=== PATIENT | male | born 1995 | race African-American/Black ===

== ENCOUNTER 2021-01-07 14:33 | Emergency (ER) | payer OTHER, SELFPAY ==
[2021-01-07 14:36] VITALS: BP 148/79; PULSE 95; RESP 17; TEMP 35.7; O2SAT 100
--- NOTE | 2021-01-07 15:29 | ED.GENADULT ---
HPI - General Adult General Chief complaint: Unspecified Stated complaint: ingrown toenail Time Seen by Provider: 01/07/21 14:50 Source: patient Mode of arrival: ambulatory Limitations: no limitations History of Present Illness HPI narrative: This is a 25 year old male that presents to the ER for ingrown toenails. Present for about a month. Reports he has had trouble with these for some time. Reports bleeding and pain to the area. Denies fever. Related Data Home Medications Medication Instructions Recorded Confirmed No Home Medications 01/07/21 01/07/21 Allergies Allergy/AdvReac Type Severity Reaction Status Date / Time No Known Drug Allergies Allergy Unknown Unknown Verified 01/07/21 14:47 Review of Systems Review of Systems: Narrative: CONSTITUTIONAL: Denies fever SKIN: Reports ingrown toenails All systems reviewed & are unremarkable except as noted in HPI and below PMFSH Past Medical History Medical History (Updated 01/07/21 @ 17:22 by Olga Whitley PA-C) Anxiety Surgical History Surgical History (Updated 09/25/19 @ 09:31 by Constantino Whitney PA-C) History of tonsillectomy and adenoidectomy Social History Social History (Updated 09/25/19 @ 09:31 by Constantino Whitney PA-C) Smoking status: Never smoker Gender identity (if verbalized by the patient): Male Exam Narrative: Exam Narrative: GENERAL: Well-appearing, well-nourished, and in no acute distress. HEAD: Normocephalic, atraumatic. EYES: EOMI. EXTREMITIES: Normal range of motion. Left great toe with ingrown toenail on the medial side of the nail. Right great toe with ingrown toenail on both the medial and lateral side of the nail. Does have moderate edema and redness surrounding the nail SKIN: Warm, dry, no rash. NEURO: No focal deficits. Alert and oriented x3. PSYCH: Normal mood and affect Course Vital Signs Vital signs: Vital Signs Temperature 96.3 F L 01/07/21 14:36 Pulse Rate 95 01/07/21 14:36 Respiratory Rate 17 01/07/21 14:36 Blood Pressure 148/79 H 01/07/21 14:36 Pulse Oximetry 100 01/07/21 14:36 Temperature 96.3 F L 01/07/21 14:36 Pulse Rate 95 01/07/21 14:36 Respiratory Rate 17 01/07/21 14:36 Blood Pressure 148/79 H 01/07/21 14:36 Pulse Oximetry 100 01/07/21 14:36 Procedures Nerve Block Nerve Block 1: Nerve block date: 01/07/21 Nerve block time: 17:19 Local Anesthetic: lidocaine 1% Amount of anesthesia used (mL): 4 Side: right Nerve Blocks: digital Procedure Successful: Yes Patient Tolerated Procedure: well Complications: none Nerve Block 2: Nerve block date: 01/07/21 Nerve block time: 17:19 Local Anesthetic: lidocaine 1% Amount of anesthesia used (mL): 4 Side: left Nerve Blocks: digital Procedure Successful: Yes Patient Tolerated Procedure: well Complications: none Other Procedure Procedure 1: Other Procedure: Ingrown toenail management 1: 1% lidocaine, no epi; 4 ccs Nail wedge removed with hemostats and scissors Ingrown toenail management 2: 1% lidocaine, no epi; 4 ccs Nail wedge removed with hemostats and scissors Medical Decision Making MDM Narrative Medical decision making narrative: Patient presents to the emergency department for bilateral ingrown toenails. I did remove the involved nail wedges bilaterally. Patient was soaked in warm soapy water. Will be started on oral antibiotics. He was instructed on wound care. Was instructed to follow-up with a benefits technician. He was given warnings to return to the ER Vital Signs Vital Signs: Vital Signs Temperature 96.3 F L 01/07/21 14:36 Pulse Rate 95 01/07/21 14:36 Respiratory Rate 17 01/07/21 14:36 Blood Pressure 148/79 H 01/07/21 14:36 Pulse Oximetry 100 01/07/21 14:36 Temperature 96.3 F L 01/07/21 14:36 Pulse Rate 95 01/07/21 14:36 Respiratory Rate 17 01/07/21 14:36 Bl
== END 2021-01-07 17:41 | disposition home or self-care (01) ==
PROVIDERS: Emergency Provider Emergency Medicine
DX: L60.0 Ingrowing nail (principal)
CPT/HCPCS: 11750; 11765; 99283

== ENCOUNTER 2021-01-24 10:42 | Outpatient (CLI) | payer OTHER, SELFPAY ==
--- NOTE | ~2021-01-24 | XR_ITS ---
EXAMINATION: XR ankle LT min 3V, XR foot LT min 3V EXAM DATE: 01/24/2021 11:14 INDICATION: Talar tarsal instability bilaterally. TECHNIQUE: Left foot standing dorsoplantar, lateral and oblique projections obtained and reviewed. L eft ankle standing frontal, lateral and oblique projections obtained and reviewed. Correlation is mad e to contralateral foot same date. FINDINGS: Left metatarsal bones unremarkable. The left ankle mortise appears intact. Mild to mod erate pes planus. There are no acute fractures or dislocations identified. There is no subcutaneous gas. The soft tissue is unremarkable. There are no radiopaque foreign bodies. IMPRESSION: Mild to moderate left pes planus. Reviewed, dictated and finalized at location B. LEASE INFORMATION CLERK IMPRESSION: Mild to moderate left pes planus.
--- NOTE | ~2021-01-24 | XR_ITS ---
EXAMINATION: XR ankle RT min 3V, XR foot RT min 3V EXAM DATE: 01/24/2021 11:14 INDICATION: Talar tarsal instability bilaterally. TECHNIQUE: Right foot standing dorsoplantar, lateral and oblique projections obtained and reviewed. Right ankle standing frontal, lateral and oblique projections obtained and reviewed. Correlation is m jose to contralateral foot and ankle same date. FINDINGS: Right metatarsal bones unremarkable. The right ankle mortise appears intact. Mild pes lisha nus. Mild hallux valgus. There are no bony erosions identified. There are no acute fractures or dislo cations identified. There is no subcutaneous gas. The soft tissue is unremarkable. There are no r adiopaque foreign bodies. IMPRESSION: 1. Mild right pes planus. 2. Mild hallux valgus. Reviewed, dictated and finalized at location B. TROTOLUENE OPERATOR IMPRESSION: 1. Mild right pes planus. 2. Mild hallux valgus.
== END 2021-01-24 10:43 | disposition home or self-care (01) ==
PROVIDERS: Visit Provider Podiatrist Foot & Ankle Surgery
DX: M79.89 Other specified soft tissue disorders (principal); M21.42 Flat foot [pes planus] (acquired), left foot; M20.11 Hallux valgus (acquired), right foot; M21.41 Flat foot [pes planus] (acquired), right foot
CPT/HCPCS: 73610; 73630

== ENCOUNTER 2023-03-18 13:46 | Emergency (ER) | payer OTHER, SELFPAY ==
[2023-03-18 13:55] VITALS: BP 153/98; PULSE 107; RESP 14; TEMP 36.9; O2SAT 100
--- NOTE | 2023-03-18 13:56 | ED.NECK ---
HPI - Neck Pain/Injury General Chief Complaint: Unspecified Stated Complaint: Left Side Face/Neck Pain Time Seen by Provider: 03/18/23 13:56 Source: patient Mode of arrival: ambulatory Limitations: no limitations History of Present Illness HPI Narrative: Abhay is a 27-year-old male patient presenting to the clinic today with complaints of left-sided facial/neck pain x 1 week. He reports he did have a fever earlier this week however his fever has broken. States he still has some left-sided facial swelling/neck that is tender to palpation. Denies any difficulty swallowing, increase and salivary production, tongue swelling, dental pain, or ear pain. History of tonsils and adenoids removed. Related Data Home Medications Medication Instructions Recorded Confirmed No Home Medications 01/07/21 03/18/23 Allergies Allergy/AdvReac Type Severity Reaction Status Date / Time No Known Drug Allergies Allergy Unknown Unknown Verified 03/18/23 14:24 Review of Systems Review of Systems: Pertinent positives per HPI. Patient denies any fever, chills, rash, headache, visual changes, dizziness, cough, runny nose, sore throat, shortness of breath, chest pain, palpitations, nausea, vomiting, diarrhea, constipation, abdominal pain, or any urinary issues. [facility] Past Medical History Medical History Anxiety Surgical History Surgical History History of tonsillectomy and adenoidectomy Social History Social History Smoking status: Never smoker Gender identity (if verbalized by the patient): Male Comments At the time of my signature, I reviewed and agree with the nursing past medical, surgical, social, and family history. There is no relevant family history pertinent to the patient complaint. Exam Narrative: General: Well-developed, well nourished, in no apparent distress Head: Normocephalic, atraumatic Eyes: Pupils equally round and reactive to light bilaterally, EOM intact, sclera and conjunctive clear, no discharge, lids normal Ears: TMs intact and clear, ear canals clear, no drainage, grossly hearing normal. Nose: Nares patent, no discharge, no inflammation, no sinus tenderness. Mouth: Oropharynx without lesions or masses, good dentition, MMM. Neck: Supple, trachea midline, no enlargement of anterior or posterior cervical nodes, swelling over the right parotid and salivary gland, tenderness to palpation over this area, no thyroid masses or goiter palpable. Cardio: Regular rate and rhythm, s1 and s2 normal, no murmur appreciated. Resp: Clear to auscultation bilaterally anteriorly and posteriorly, no rhonchi, rales, wheezing or rubs Course Course Emergency Course: Portions of this record may have been created with voice recognition software. Level of Care: Express Care Visit Vital Signs Vital signs: Vital signs reviewed MDM - Neck Pain/Injury MDM Narrative Medical decision making narrative: At the time of visit patient is resting comfortably on the exam table. No sign of ear infection, dental infection, strep screen was negative. I suspect patient has either sialadenitis verses mumps virus. Supportive measures were discussed with the patient he voiced understanding discharge instructions agrees to treatment plan. Differential Diagnosis Differential diagnosis: Likely other (dental infection, ear infection, sialadenitis, mumps virus) Discharge Plan Discharge Clinical Impression: Sialadenitis Patient Disposition: Home, Self-Care Condition: Stable Instructions: Antibiotic Form, Sialoadenitis (ED), Mumps in Adults (ED) Additional Instructions: Strep screen was negative in the clinic today. Recommend try to use sour candies to help alleviate symptoms May apply warm compresses to the affected area for 15 ricky
== END 2023-03-18 14:32 | disposition home or self-care (01) ==
PROVIDERS: Emergency Provider Nurse Practitioner Family; PCP Family Medicine
DX: K11.20 Sialoadenitis, unspecified (principal)
CPT/HCPCS: 87081; 87880; 99213; G0463

== ENCOUNTER 2023-03-19 21:14 | Emergency (ER) | payer OTHER, SELFPAY ==
[2023-03-19 21:18] VITALS: BP 147/97; PULSE 114; RESP 18; TEMP 36.6; O2SAT 99
--- NOTE | 2023-03-19 23:02 | ED.GENADULT ---
HPI - General Adult General Chief complaint: Skin/Abscess/Foreign Body <Jeromy Seals PA-C - Last Filed: 03/20/23 03:23> Stated complaint: lumps to head and neck <TAMERA Vail Last Filed: 03/20/23 03:23> Time Seen by Provider: 03/19/23 22:42 <TAMERA Vail Last Filed: 03/20/23 03:23> Source: patient <TAMERA Vail Last Filed: 03/20/23 03:23> Mode of arrival: ambulatory <TAMERA Vail Last Filed: 03/20/23 03:23> Limitations: no limitations <TAMERA Vail Last Filed: 03/20/23 03:23> History of Present Illness HPI narrative: This is a 27-year-old male presents the ED with chief complaint of lymph node swelling and fevers x1 week. Patient states he has been feeling somewhat ill over the past week. Reports Tmax of 99 at home. Endorses malaise. Denies sore throat, congestion, rhinorrhea, abdominal pain, nausea, vomiting, chest pain, shortness of breath. <TAMERA Vail Last Filed: 03/20/23 03:23> Related Data Allergies/adverse reactions: Allergies Allergy/AdvReac Type Severity Reaction Status Date / Time No Known Drug Allergies Allergy Unknown Unknown Verified 03/19/23 22:10 <TAMERA Vail Last Filed: 03/20/23 03:23> Review of Systems Review of Systems: CONSTITUTIONAL: See HPI EYES: Denies visual changes, redness, or discharge. ENT: Denies rhinorrhea, congestion, sore throat, or otalgia. CARDIOVASCULAR: Denies chest pain, palpitations, or edema. RESPIRATORY: Denies cough or dyspnea. GASTROINTESTINAL: Denies abdominal pain, nausea, vomiting, or diarrhea. GENITOURINARY: Denies dysuria or hematuria. SKIN: See HPI MUSCULOSKELETAL: Denies back pain, joint pain, or myalgia. NEUROLOGIC: Denies headache, numbness, dizziness, or weakness. PSYCHIATRIC: Denies anxiety or depression. <Jeromy Seals PA-C - Last Filed: 03/20/23 03:23> [facility] Past Medical History Medical History: Medical History Anxiety <TAMERA Vail Last Filed: 03/20/23 03:23> Surgical History Surgical History: Surgical History History of tonsillectomy and adenoidectomy <TAMERA Vail Last Filed: 03/20/23 03:23> Social History Social History: Social History Smoking status: Never smoker Gender identity (if verbalized by the patient): Male <TAMERA Vail Last Filed: 03/20/23 03:23> Exam Narrative: GENERAL: Well-appearing, well-nourished, and in no acute distress. HEAD: Normocephalic, atraumatic. EYES: PERRLA and EOMI. ENT: Nares clear, no rhinorrhea or epistaxis. Mucous membranes moist. Oropharynx without tonsillar hypertrophy exudate or other lesions. NECK: Supple. Anterior and posterior cervical chain lymphadenopathy present bilaterally. nodes are mildly tender. CHEST: No respiratory distress. Clear to auscultation. No wheezes rales or rhonchi HEART: Regular rate and rhythm. No murmur heard. Normal peripheral pulses. ABDOMEN: Soft, nontender, nondistended, normal active bowel sounds. EXTREMITIES: Normal range of motion. No edema. SKIN: Warm, dry, no rash. NEURO: Alert and oriented x3. No focal deficits. PSYCH: Normal mood and affect. <Jeromy Seals PA-C - Last Filed: 03/20/23 03:23> Course REGULATORY AFFAIRS DIRECTOR/PA Physician Supervision This is a was performed by both a physician and an APC. I performed all aspects of the MDM as documented w/ the following additions: 27-year-old male presenting with sore throat and tender cervical lymphadenopathy. Strep throat was positive. Patient is discharged on antibiotics. All questions answered. Patient in agreement w/ disposition. <Marv Evans MD - Last Filed: 03/23/23 08:01> Vital Signs Vital signs: Vital Signs Temperature 97.8 F 03/19/23 21:18 Pulse Rate 1
[2023-03-19 23:33] VITALS: PULSE 97; RESP 18; O2SAT 99
[2023-03-19 23:35] LABS: Basophils Percent Auto 0.5 % (0.2-1.2); Eosinophils Absolute Auto 0.2 K/mm3 (0-0.3); Hematocrit 46.9 % (42.0-52.0); Hemoglobin 15.6 g/dL (14.0-18.0); Immature Granulocyte Absolute 0.02 K/mm3 (0.00-0.031); Immature Granulocyte Percent A 0.3 % (0-0.5); Lymphocytes Absolute Auto 1.82 K/mm3 (0.9-3.2); Lymphocytes Percent Auto 23.2 % (18.3-44.2); Mean Corpuscular HGB Conc 33.3 g/dl (32-36); Mean Corpuscular Volume 87.2 fl (80-100); Mean Platelet Volume 8.3 fl (7.4-10.4); Monocytes Absolute Auto 0.8 K/mm3 (0.1-0.6); Monocytes Percent Auto 10.2 % (2.6-8.5); Neutrophils Percent Auto 63.8 % (45.5-73.1); Platelet Count Result 366 k/mm3 (150-375); Red Blood Count 5.38 M/mm3 (4.6-6.20); Red Cell Distribution Width 12.8 % (11.5-14.5); White Blood Count 7.8 K/mm3 (4.5-10.0)
[2023-03-20 00:02] LABS: Alanine Aminotransferase 33 U/L (6-50); Albumin Level 4.6 g/dL (3.5-5.1); Alkaline Phosphatase 86 U/L (38-126); Anion Gap 6 mmol/L (8-16); Aspartate Amino Transferase 30 U/L (17-59); Bilirubin,Total 0.6 mg/dL (0.2-1.3); Blood Urea Nitrogen 10 mg/dL (9-20); Calcium 8.9 mg/dL (8.4-10.2); Carbon Dioxide 30 mmol/L (22-30); Chloride 103 mmol/L (98-107); Estimated CRCL calculation 169 ml/min; Estimated Glomerular Filt Rate > 60; Glucose 106 mg/dL (65-110); Potassium 5.2 mmol/L (3.4-5.0); Sodium 139 mmol/L (137-145)
[2023-03-20 00:10] LABS: Influenza A QL RT-PCR Negative (Negative); Influenza B QL RT-PCR Negative (Negative); RSV RNA, RT-PCR Negative (Negative); SARS-CoV-2 RNA PCR Negative (Negative)
[2023-03-20 00:23] LABS: Strep Group A RT-PCR DETECTED (Negative)
[2023-03-20] MEDS: AMOXICILLIN 500 MG CAPSULE PO (00:59)
[2023-03-20 01:06] VITALS: BP 131/79; PULSE 94; RESP 18; TEMP 36.6; O2SAT 99
== END 2023-03-20 01:06 | disposition home or self-care (01) ==
PROVIDERS: Emergency Provider Physician Assistant; PCP Family Medicine
DX: J02.0 Streptococcal pharyngitis (principal); Z20.822 Contact with and (suspected) exposure to COVID-19
CPT/HCPCS: 36415; 80053; 85025; 87637; 87651; 96372; 99283; A9270; J1100

== ENCOUNTER 2023-04-12 02:31 | Day surgery (SDC) | payer OTHER, SELFPAY ==
[2023-04-08 08:27] VITALS: BMI 37.8
--- NOTE | 2023-04-08 08:36 | PC.NURSE ---
Report to the Outpatient Waiting Room, entrance under the green pavilion located off [facility], at time 0600_ on date _04/12/23. Planned Procedure Time: __0730. Time changes happen often and if your time is changed the preop area will call you the afternoon before. - You and your visitor will be asked to self-screen and do not enter if you have any COVID symptoms. - A mask is optional within the hospital at this time. Patients may have clear liquids (water, carbonated beverages, clear teas, apple juice) until 3 hours prior to surgery with a maximum of 20 ounces. - No food from midnight until time of surgery - Infants may have breast milk until 4 hours before surgery, formula 6 hours prior to surgery. - Children will be allowed to drink immediately following surgery. If applicable, please bring a bottle or sippy cup to assist with drinking. Juice, water, soda, and popsicles are readily available. For infants on formula, please bring formula the day of surgery. Pacifiers are allowed. Take the following medications with a SIP of water the morning of surgery: __inhaler if needed DO NOT STOP ANY OF YOUR OTHER PRESCRIPTION MEDICATIONS PRIOR TO SURGERY ?EXCEPT THE FOLLOWING Medications to discontinue per physician none Date to take last dose Please no make-up, nail australian, hairspray, perfume, deodorant, or body powder the day of surgery. No jewelry (including any body piercings) or valuables the day of surgery, leave them at home. Please take a shower or bath the night before, or the morning of, surgery with an antibacterial soap. Wear comfortable, loose fitting clothing. Children are encouraged to wear pajamas. - Jewelry must be removed prior to entering the operating room. Rings and piercings that are not removed may be cut off. - The hospital will not accept responsibility for valuables. - Please leave all valuables, including medications, at home the day of surgery. If you are going home after surgery, a licensed security patrol driver must drive you home. - NO public transportation without another adult if you receive anesthesia. - We recommend that an adult stay with you for 24 hours following discharge. - We also recommend that you do not drive, make important decision, drink alcoholic beverages, or take any drugs that were not prescribed by your health care provider for at least 24 hours after your discharge time. For Pediatric surgeries, we recommend two adults accompany the child home. Follow any additional instructions given to you from your surgeon. If you or anyone in your household have experienced Covid symptoms in the past week, please notify your surgeon or the nurse liaison at the phone number below for possible testing. Telephone instructions given to _patient_and asked if any additional questions and then verbalized understanding. Patient advised to call surgeon office or pre surgery nurse liaison [phone] if any additional questions.
[2023-04-12] VITALS (11 sets, daily range): BP systolic 112–145; BP diastolic 64–89; PULSE 101–112; RESP 14–22; TEMP 36.3–36.7; O2SAT 95–100
--- NOTE | ~2023-04-12 | XR_ITS ---
EXAMINATION: XR surgery orthopedic DATE: 04/12/2023 11:49 INDICATION: Left foot correction TECHNIQUE: 2 fluoroscopic images of the left hindfoot were obtained during procedure performed by Dr. Hunt. Radiologist was not present for the imaging or procedure. The amount of fluoroscopy time u sed during this procedure was 0.4 minutes. COMPARISON: None. FINDINGS: Interval osteotomy across the anterior neck of the calcaneus which is fixed with a lateral sided plat e and screws. The previously seen pes planus with increased internal rotation of the anterior talus i s reduced and alignment appears near-anatomic. No fractures identified. Profiled joint spaces are unr emarkable. IMPRESSION: 1. Fluoroscopy utilized during likely realignment osteotomy of the anterior calcaneus for correction of prior flatfoot deformity with lateral plate and screw fixation. See procedure note for further det ail. Reviewed, dictated and finalized at location A. IMPRESSION: 1. Fluoroscopy utilized during likely realignment osteotomy of the anterior raymundo caneus for correction of prior flatfoot deformity with lateral plate and screw fixation. See procedure note for further detail.
--- NOTE | 2023-04-12 07:19 | WPDHPUPDATE1 ---
History and Physical Update Update Date/Time: 04/12/23 07:19 History and Physical has been reviewed, including an updated exam of the patient. There are NO changes in the patient's condition. Risks, benefits, and alternatives have been discussed and questions answered. Patient agrees to proceed with procedure.
--- NOTE | 2023-04-12 09:03 | WPDANESEPPF ---
Anes - Initial Pre Proc Eval Procedure: Operation Date: 04/12/23 10:00 Proposed Procedures p Aldrich Calcaneal Osteotomy and Tendo Achilles Lengthening of the Left Foot - Jose Hunt JR, MD Date/Time: 04/12/23 09:03 Surgeon: Jose Hunt JR, MD Pre Op Diagnosis: talo tasel instability L foot,equ[place] l foot Patient Data Age: 27 Gender: M Height: 1.63 m Weight: 100 kg Allergies Allergy/AdvReac Type Severity Reaction Status Date / Time No Known Drug Allergies Allergy Unknown Unknown Verified 04/08/23 08:27 Home Medications Medication Instructions Recorded Confirmed Type albuterol sulfate 90 mcg/actuation 2 puff inhalation QID PRN 04/08/23 04/08/23 History aerosol inhaler Shortness Of Breath loratadine 10 mg tablet (Claritin) 10 mg PO DAILY PRN ALLERGIES 04/08/23 04/08/23 History Patient hx anesthesia problems: none Family hx anesthesia problems: none Results Review: All pre-operative results and documents have been reviewed as part of the pre-operative evaluation. [facility] Past Medical History Medical History (Updated 04/12/23 @ 09:04 by Kit Alexander MD) Anxiety Aspergers' syndrome Asthma Obesity Tachycardia Surgical History Surgical History History of tonsillectomy and adenoidectomy Social History Social History Years smoked: 1 Smoking status: Never smoker Tobacco type: cigarettes Alcohol intake: former Living arrangements: with family Gender identity (if verbalized by the patient): Male Anes - Eval Final PreProcedure Day of Procedure 04/12/23 09:03 Patient weight: obese Heart: regular rate and rhythm Lungs: clear to auscultation Airway: Mallampati scale class II Neurological: alert and oriented Last oral intake: >/= 8 hours ASA classification: II Emergent: no Anesthetic plan: proceed Anesthesia type and monitoring: general ETT and standard monitoring Results Review: All pre-operative results and documents have been reviewed as part of the pre-operative evaluation. Informed Consent: The patient's anesthetic plan and its attendant risks and benefits were discussed with the patient/family/POA. Questions were solicited and answers provided to the satisfaction of the patient/family/POA.
--- NOTE | 2023-04-12 09:35 | WPDHPUPDATE1 ---
History and Physical Update Update Date/Time: 04/12/23 09:35 History and Physical has been reviewed, including an updated exam of the patient. Risks, benefits, and alternatives have been discussed and questions answered. Patient agrees to proceed with procedure. Added to consent: Removal of left hallux nail plate. The patient has a paronychia and failed to make my office aware prior to his surgery. Removal of the nail plate will prevent infection at the operative site.
[2023-04-12] MEDS: LACTATED RINGERS 1,000 ML 30 ML IV CONT (09:54)
--- NOTE | 2023-04-12 10:35 | WPDANESPNB ---
Anes - Peripheral Nerve Block Date/Time: 04/12/23 10:35 I have discussed with the patient/family/POA the placement of a peripheral nerve block for post-operative pain management, including associated risks, benefits, complications, and side effects. Alternative methods of post-operative analgesia were detailed. Questions were solicited and answers provided to the satisfaction of the patient/family/POA. Time-Out: A pre-procedural Time-Out was completed immediately before starting the procedure and confirmed: Patient Identification, Site, Procedure, Patient Position and the Availability of Requisite Equipment. Clinical Indications: Acute post-operative pain management requested by the operative surgeon. Nerve Block Insertion Note Anes-nerve block: posterior fossa sciatic left and other (saphenous) Patient position: supine Skin prep: chlorhexidine Needle: 22 gauge, stimulating, insulated echogenic needle. Needle length: 80 mm Technique: nerve stimulation lost at (mA) (0.35) Injectate: bupivacaine 0.5% with epi 5 mcg/ml (20cc no epi sciatic, 10cc saphenous) and dexamethasone (mg) (8) Observations: tolerated well Complications: none Procedure start time:: 8 Procedure end time:: 1033
[2023-04-12] MEDS: ceFAZolin 2 GM/D5W 50 ML 2 GM/50 ML BAG IVPB (10:37)
[2023-04-12] MEDS: BACITRACIN OINTMENT 15 GM TUBE 1 APPLIC TOPICAL (11:13)
--- NOTE | 2023-04-12 12:12 | W.PM.PROC2 ---
Procedure Note - Detailed Date of Procedure 04/12/23 Pre-op Diagnosis 1. Talar tarsal instability left foot 2. Gastrocsoleus equinus left foot 3. Paronychia left hallux Post-op Diagnosis Same Procedure Performed 1. Tendo Achilles lengthening left foot 2. Aldirch anterior calcaneal osteotomy left foot 3. Removal of left hallux nail plate Surgeon Jose Hunt JR, DAINAM Anesthesia General and Regional Indications Painful left hind foot with talar tarsal instability and a pes planovalgus foot deformity Description of Procedure PROCEDURE IN DETAIL: Under mild sedation, the patient was brought into the operating room and placed on the operating table in the supine position. A pneumatic thigh tourniquet was placed about the patient's thigh. Following general anesthesia and a previous popliteal fossa block, the foot and ankle was then scrubbed, prepped, and draped in the usual aseptic manner. An Esmarch bandage was then used to exsanguinate the patient's foot and ankle and the pneumatic thigh tourniquet was then inflated to 300 mmHg. First I removed the lytic left hallux nail plate with a Rizwana Hemostatat and dressed with bacitracin, adaptic, 4x4 gauze and Coban. First, I elevated the left leg and made 2 separate incisions, each 1cm and by 1cm, starting 4 cm above the level of the superior calcaneus. I made a vertical stab incision into the Achilles tendon and rotated the blade making a natanael section each time, noting a overall improvement as far as dorsiflexion of the ankle joint with the knee extended. I closed the skin incisions with 4-0 Prolene in simple interrupted suture fashion technique. Attention was directed to the lateral aspect of the hindfoot. An incision was made starting just distal to the lateral malleolus and extending towards the base of the calcaneal cuboid joint. The extensor digitorum brevis muscle was detached partially from its origin to expose the calcaneal cuboid joint and distal lateral aspect of the anterior calcaneus. The peroneal tendons were carefully retracted inferiorly. The periosteal tissue was dissected approximately 1.5cm proximal to the calcaneal cuboid joint. At this point a sagittal saw blade was used to make an osteotomy parallel with the calcaneal joint however 1.5cm proximal to the joint, the medial cortical hinge was preserved. Two Hilda pins were placed proximal and distal to the osteotomy site and the osteotomy was opened until the talar head was fully covered by the navicular, noted under fluoroscopy. This also helped to plantarflex the first ray. A 10mm [employer] allograft wedge was tamped into the osteotomy and fixated with a linear 2 hole locking plate from [employer] with two 2.7mm locking screw. The distractor was removed and transverse plane deformity of the patients flat foot well reduced. Next, the periosteal and capsular tissues were reapproximated and coapted with 3-0 Vicryl. A reattached the extensor digitorum brevis tendon to its origin. The subcutaneous structures were reapproximated and coapted with 4-0 Vicryl and the skin was reapproximated with 4-0 Monocryl. Upon completion of the procedure, the incisions were dressed with Steri-Strips [id number], Adaptic, 4x4s, Kerlix, and Coban. The pneumatic thigh tourniquet was then deflated and a prompt hyperemic response was noted to all digits of the affected foot. A posterior splint was then applied to the involved lower extremity. The patient did very well with the procedure and the anesthesia. The patient was transferred to the recovery room with vital signs stable and vascular status intact to all toes of the affected foot. Following a period of postoperative monitoring, the patient will be discharged home on the following written and oral postoperative instructions: 1. Keep the dressing clean, dry, and intact. Use a cast protector bag with showering. 2. The patient to be strictly nonweightbearing wit
== END 2023-04-12 14:45 | disposition home or self-care (01) ==
PROVIDERS: PCP Family Medicine; Visit Provider Podiatrist Foot & Ankle Surgery
PROC: (CPT 28750; principal; 2023-04-12 10:00)
DX: M25.375 Other instability, left foot (principal); M21.6X2 Other acquired deformities of left foot; L03.032 Cellulitis of left toe; G89.18 Other acute postprocedural pain; J45.909 Unspecified asthma, uncomplicated; F84.5 Asperger's syndrome; Z79.51 Long term (current) use of inhaled steroids; E66.9 Obesity, unspecified; Z68.38 Body mass index [BMI] 38.0-38.9, adult
CPT/HCPCS: 11730; 28300; 27606; 64450; 64445; 99199; A9270; C1713; J0690; J1100; J2250; J2405; J2704; J3010; J7120

== ENCOUNTER 2023-11-19 17:36 | Emergency (ER) | payer SELFPAY ==
--- NOTE | ~2023-11-19 | CT_ITS ---
CT ANGIOGRAM NECK AND HEAD History: Right lower extremity weakness. Technique: Axial noncontrast imaging of brain was performed. Serial spiral axial images through the h ead and neck were then obtained during arterial phase IV injection of 100 cc of Omnipaque 350. 3-D po stprocessing and MIP images were then reconstructed on the remote workstation. Dose reduction techniq ue was used on this scan by utilizing automated exposure control and iterative reconstruction techniq ue. The dose-length product (DLP) was 1864.91 mGy-cm. CTA neck findings: Bilateral vertebral arteries are patent. Bilateral common carotid, internal carot id, external carotid arteries are patent. No large vessel occlusion. No stenosis or aneurysm. The pro ximal right internal carotid artery demonstrates 0% stenosis relative to the normal distal artery lum en diameter. The proximal left internal carotid artery demonstrates 0% stenosis relative to the [place] l distal artery lumen diameter. CTA head findings: Distal vertebral arteries, basilar artery, and posterior cerebral arteries are pat ent. Distal internal carotid arteries, middle cerebral arteries, and anterior cerebral arteries are p atent. No large vessel occlusion. No stenosis or aneurysm. Axial noncontrast imaging of the brain is unremarkable. No evidence for acute infarct, intracranial h emorrhage, or mass lesion. He-white differentiation is preserved. Ventricles and subarachnoid space s are unremarkable. No mass effect or midline shift. Paranasal sinuses and mastoid air cells are anand r. Impression: Unremarkable exam. Reviewed, dictated and finalized at [facility]. [employer] INST[employer]ER Impression: Unremarkable exam.
--- NOTE | ~2023-11-19 | XR_ITS ---
Portable chest x-ray Comparison: None Clinical History: Tachycardia Findings: Lungs are clear, without focal consolidation or pleural effusion. Cardiomediastinal silho uette is unremarkable. Bones and soft tissues are unremarkable. Impression: Normal chest. Reviewed, dictated and finalized at location . CONDUCTOR Impression: Normal chest.
[2023-11-19 18:02] VITALS: BP 130/80; PULSE 128; RESP 16; TEMP 36.8; O2SAT 98
[2023-11-19 22:20] VITALS: BP 125/84; PULSE 100; RESP 19; O2SAT 100
[2023-11-19 23:32] VITALS: BP 138/72; PULSE 100; RESP 18; O2SAT 99
[2023-11-20 00:24] VITALS: BP 134/77; PULSE 102; RESP 17; O2SAT 95
--- NOTE | 2023-11-20 00:48 | ECG_ITS ---
Measurements Intervals [place] Rate: 97 P: 55 OR: 144 QRS: 31 QRSD: 97 T: 12 QT: 344 QTc: 438 Interpretive Statements SINUS RHYTHM BASELINE WANDER- AVR, AVF, V1-V3 NORMAL ECG NO PREVIOUS ECG AVAILABLE FOR COMPARISON Electronically Signed On 11-20-2023 7:55:39 DIRECTOR PRODUCT MANAGEMENT by Roderick Soler D.O.
--- NOTE | 2023-11-20 00:50 | ED.NEUROSD ---
HPI - Neuro Symptoms/Deficit General Chief Complaint: Neuro Symptoms/Deficit Stated Complaint: weakness on right side/light sensitivity Time Seen by Provider: 11/19/23 23:59 Source: patient and family Limitations: no limitations History of Present Illness HPI Narrative: Patient is a 28-year-old male presents to the emergency department accompanied by significant other for paresthesias in both of his hands and his right leg which also felt slightly weak due to the paresthesias per patient. Patient states that the paresthesias in his left hand started this morning and common go and then he noticed in his right hand tonight and denies any history is in the past. Patient states he got off work around 4:00 p.m. when he noticed that his right leg seemed weak and also had some tingling sensations primarily in the foot region and also have him again around 5:00 p.m.. Patient denies any recent injuries. Patient admits to polydipsia and polyuria. Significant other notes that his breath is spelled for the today. Patient denies history of diabetes but does admit to family history of diabetes. Patient denies any new or change medications. Patient denies fever, cough, chest pain, shortness of breath, rhinorrhea, congestion, sore throat, confusion, abdominal pain, nausea, vomiting, diarrhea, melena, hematochezia, dysuria, vision changes, difficulty swallowing, dysphonia. Patient denies regular alcohol consumption. Related Data Home Medications Medication Instructions Recorded Confirmed albuterol sulfate 90 mcg/actuation 2 puff inhalation QID PRN 04/08/23 04/08/23 aerosol inhaler Shortness Of Breath loratadine 10 mg tablet (Claritin) 10 mg PO DAILY PRN ALLERGIES 04/08/23 04/08/23 Allergies Allergy/AdvReac Type Severity Reaction Status Date / Time No Known Drug Allergies Allergy Unknown Unknown Verified 04/12/23 09:55 Review of Systems Review of Systems: A 10 system review of systems was completed on the patient and is negative except for what is stated in the HPI. Nursing and ancillary documentation was reviewed. [facility] Past Medical History Medical History (Updated 11/20/23 @ 07:39 by Shelton Call DO) Anxiety Aspergers' syndrome Asthma Obesity Tachycardia Surgical History Surgical History History of tonsillectomy and adenoidectomy Social History Social History Years smoked: 1 Smoking status: Never smoker Tobacco type: cigarettes Alcohol intake: former Living arrangements: with family Gender identity (if verbalized by the patient): Male Comments At time of signature, I have reviewed and agree with nursing past medical, surgical, social and family history unless otherwise noted. Please see the nursing chart for further information. There is no relevant family history pertinent to the presenting complaint. Exam Narrative: CONST: No acute distress. Well nourished. HENMT: Head is normocephalic and atraumatic. Tacky mucous membranes. No posterior oropharynx erythema. EYES: No conjunctival icterus, injection, or pallor. PERRL. NECK: No meningeal signs. No palpable cervical lymphadenopathy. RESP: Able to speak in full sentences. Normal respiratory effort. CTAB. CARDIO: Tachycardic rate. Regular rhythm. 2+ DP and radial pulses bilaterally. GI: Nondistended. No tenderness to palpation. Soft. : No CVA tenderness to palpation. SKIN: No rashes or lesions noted on exposed skin. NEURO: Oriented x3. Moves all extremities. 5/5 motor strength in bilateral upper and lower extremities. Sensation intact to light touch throughout bilateral upper and lower extremities. Cranial nerves 2-12 intact. Speech is clear and fluent. No nystagmus. EXTREM/MSK/BACK: No pedal edema. No midline vertebral tenderness to palpation or step-offs. PSYCH: Normal affect. Course Vital Signs Vital signs: Vital Si
[2023-11-20] MEDS: SODIUM CHLORIDE 0.9% IV 1,000 ML 999 ML IV CONT (01:25)
[2023-11-20 01:26] LABS: Device ROOM AIR; Fractional Inspired Oxygen 21 %; HCO3 VBG 29.2 mEq/l (24.0-30.0); PCO2 VBG 53.3 mmHg (42.0-48.0); pH VBG 7.356 (7.300-7.400)
[2023-11-20 01:37] LABS: Glucose Point of Care 108 mg/dl (65-105)
[2023-11-20 01:42] LABS: Ethanol < 10 mg/dL (<10)
[2023-11-20 01:43] LABS: Alanine Aminotransferase 33 U/L (6-50); Albumin Level 4.4 g/dL (3.5-5.1); Alkaline Phosphatase 86 U/L (38-126); Anion Gap 9 mmol/L (8-16); Aspartate Amino Transferase 27 U/L (17-59); Bilirubin,Total 0.4 mg/dL (0.2-1.3); Blood Urea Nitrogen 17 mg/dL (9-20); Calcium 9.1 mg/dL (8.4-10.2); Carbon Dioxide 29 mmol/L (22-30); Chloride 100 mmol/L (98-107); Estimated CRCL calculation 131 ml/min; Estimated Glomerular Filt Rate > 60; Glucose 114 mg/dL (65-110); Lipase 92 U/L (23-300); Magnesium 2.1 mg/dL (1.6-2.3); Potassium 3.6 mmol/L (3.4-5.0); Sodium 138 mmol/L (137-145)
[2023-11-20 01:45] LABS: Basophils Percent Auto 0.5 % (0.2-1.2); Eosinophils Absolute Auto 0.2 K/mm3 (0-0.3); Eosinophils Percent Auto 2.3 % (0-4.4); Hematocrit 48.5 % (42.0-52.0); Hemoglobin 15.3 g/dL (14.0-18.0); Immature Granulocyte Absolute 0.03 K/mm3 (0.00-0.031); Immature Granulocyte Percent A 0.4 % (0-0.5); Lymphocytes Absolute Auto 3.16 K/mm3 (0.9-3.2); Lymphocytes Percent Auto 37.9 % (18.3-44.2); Mean Corpuscular HGB Conc 31.5 g/dl (32-36); Mean Corpuscular Volume 88.7 fl (80-100); Mean Platelet Volume 8.5 fl (7.4-10.4); Monocytes Absolute Auto 0.7 K/mm3 (0.1-0.6); Monocytes Percent Auto 8.5 % (2.6-8.5); Neutrophils Absolute Auto 4.2 K/mm3 (1.3-6.7); Neutrophils Percent Auto 50.4 % (45.5-73.1); Platelet Count Result 403 k/mm3 (150-375); Red Blood Count 5.47 M/mm3 (4.6-6.20); Red Cell Distribution Width 13.4 % (11.5-14.5); White Blood Count 8.3 K/mm3 (4.5-10.0)
[2023-11-20 01:50] LABS: Beta-Hydroxybutyrate/Acetoacetate 0.06 mmol/L (0.02-0.27)
[2023-11-20 01:55] LABS: Appearance Urine Clear (Clear); Bacteria Urine None Seen /hpf; Bilirubin Urine Negative (Negative); Blood Urine Negative (Negative); Color Urine Yellow (Yellow); Glucose Urine UA Negative (Negative); Ketones Urine Negative (Negative); Leukocyte Esterase Ur Negative LEU/UL (Negative); Mucus Urine Present /lpf; Need Manual Microscopic Reviewed; Nitrate Urine Negative (Negative); Protein Urine 1+ mg/dL (Negative); RBC Urine 0-2 /hpf (0-2); Squamous Epithelial Cell Urine None seen /hpf (Few); WBC Urine 21-50 /hpf
[2023-11-20 01:56] LABS: Specific Grav Ur 1.038 (1.001-1.035)
[2023-11-20 01:58] LABS: Amphetamine Screen Urine Negative (Negative); Barbiturate Screen Urine Negative (Negative); Benzodiazepines Screen Urine Negative (Negative); Cannabinoid Screen Urine Negative (Negative); Cocaine Screen Urine Negative (Negative); Methadone Screen Urine Negative (Negative); Opiate Screen Urine Negative (Negative); Phencyclidine Screen Urine Negative (Negative)
[2023-11-20 01:59] LABS: Add Urine Microscopic? YES
[2023-11-20 02:18] LABS: Troponin I < 0.012 ng/mL (0.000-0.034)
[2023-11-20 03:00] VITALS: BP 135/85; PULSE 108; RESP 18; O2SAT 98
[2023-11-20 04:57] VITALS: O2SAT 99
[2023-11-20 05:10] VITALS: BP 124/84; PULSE 100; RESP 18; O2SAT 98
[2023-11-20 07:39] VITALS: BP 112/60; PULSE 100; RESP 18; O2SAT 100
--- NOTE | 2023-11-20 07:40 | PC.NURSE ---
Pt on 2 L NC O2 for when resting (snoring), O2 decreases to 80s on room air when resting.
[2023-11-20 07:41] VITALS: PULSE 99
== END 2023-11-20 07:58 | disposition home or self-care (01) ==
PROVIDERS: Emergency Provider Student in an Organized Health Care Education/Training Program; PCP Family Medicine
DX: R20.2 Paresthesia of skin (principal); Z87.891 Personal history of nicotine dependence
CPT/HCPCS: 36415; 70496; 70498; 71045; 80053; 80307; 81001; 82010; 82803; 82948; 83690; 83735; 84443; 84484; 85025; 87086; 93005; 96360; 99284; J7030; Q9967